=== PATIENT | female | born 1995 | race Two or more races ===

== ENCOUNTER 2016-03-23 14:27 | Emergency (ER) | payer SELFPAY ==
[~2016-03-23] VITALS: Ht 160 cm; Wt 48.5 kg
[2016-03-23 14:47] VITALS: BP 129/49
== END 2016-03-23 15:07 | disposition home or self-care (01) ==
LOC: ER 14:30
DX: J06.9 Acute upper respiratory infection, unspecified (principal)

== ENCOUNTER 2017-06-06 09:04 | Emergency (ER) | payer MEDICAID ==
[~2017-06-06] VITALS: Ht 160 cm; Wt 49.9 kg
[2017-06-06 10:03] VITALS: BP 102/56
[2017-06-06 10:11] LABS: Basophils # (auto) 0 uL; Basophils % (auto) 0.2 % (0.0-2.0); Eosinophils # (auto) 0.1 uL; Eosinophils % (auto) 0.7 % (0.0-7.0); Hematocrit 42.6 % (36.0-46.0); Hemoglobin 14.5 g/dL (12.2-16.2); Lymphocytes # (auto) 1.4 uL; Lymphocytes % (auto) 14.2 % (10.0-50.0); Mean Corpuscular Volume 88.4 fL (80.0-100.0); Monocytes # (auto) 0.4 uL; Monocytes % (auto) 3.8 % (0.0-12.0); Neutrophils # (auto) 7.9 uL; Neutrophils % (auto) 81.1 % (37.0-80.0); Platelet Count (auto) 285 10^3/uL (140-450); Red Blood Cells 4.82 10^6/uL (4.0-5.20); Red Cell Distribution Width 11.9 % (11.8-14.3); White Blood Cell 9.8 10^3/uL (4.4-10.8)
[2017-06-06 10:20] LABS: Urine Bacteria NONE SEEN /hpf (None Seen); Urine Blood 2+ /uL (Negative); Urine Mucus FEW (None Seen); Urine Specific Gravity 1.026 (1.001-1.035); Urine WBC 4 /hpf (0 - 5)
[2017-06-06 10:37] LABS: Albumin 4.3 g/dL (3.4-5.0); BUN/Creatinine Ratio 11.5; Bilirubin, Total 0.4 mg/dL (0.2-1.0); Potassium 4.1 mmol/L (3.5-5.1); Total Protein 7.9 g/dL (6.4-8.2)
== END 2017-06-06 10:51 | disposition home or self-care (01) ==
LOC: ER 09:04
DX: N39.0 Urinary tract infection, site not specified (principal); R55 Syncope and collapse
CPT/HCPCS: 36415; 80053; 81001; 84702; 85025; 93005